=== PATIENT | female | born 1980 | race Caucasian/White ===

== ENCOUNTER → 2020-12-16 | Outpatient (CLI) | payer BC ==
[~2020-12-16] MED LIST: ATENOLOL50 MG PO; DESVENLAFAXINE100 MG PO; DITROPAN XL10 MG PO; ELIQUIS2.5 MG PO; IMITREX100 MG PO; LITHIUM CARBON300 M4 PO; PERCOCET 7.5-31 EACH PO; TOPAMAX50 MG PO; TRAZODONE HCL100 MG PO; VISTARIL25 MG PO; VRAYLAR PO; WELLBUTRIN SR150 M1 PO
[2020-12-16 08:18] LABS: HEMOGLOBIN 13.4 gm/dl (12.3-15.3); RED BLOOD COUNT 4.47 M/UL (4.00-5.10); WHITE BLOOD COUNT 7.9 K/UL (4.5-11.0)
[2020-12-16 08:39] LABS: BUN/CREATININE RATIO 21 (0-10)
== END ==
LOC: LAB 07:34
PROVIDERS: Physician Assistant
DX: E11.9 Type 2 diabetes mellitus without complications (principal); D50.9 Iron deficiency anemia, unspecified; E78.2 Mixed hyperlipidemia; D64.9 Anemia, unspecified; R53.83 Other fatigue
CPT/HCPCS: 36415; 80053; 80061; 82607; 82728; 83036; 83540; 83550; 84439; 84443; 85025

== ENCOUNTER → 2021-04-20 | Outpatient (CLI) | payer BC, OTHER ==
[2021-04-20 08:09] LABS: HEMOGLOBIN 13.8 gm/dl (12.3-15.3); RED BLOOD COUNT 4.9 M/UL (4.00-5.10); WHITE BLOOD COUNT 9.8 K/UL (4.5-11.0)
[2021-04-20 08:27] LABS: BUN/CREATININE RATIO 15 (0-10)
[2021-04-21 11:14] LABS: CREATININE, URINE 193.2 mg/dL (Not Estab.)
== END ==
LOC: LAB 07:13
PROVIDERS: Physician Assistant
DX: E11.9 Type 2 diabetes mellitus without complications (principal); F31.81 Bipolar II disorder; E55.9 Vitamin D deficiency, unspecified; R53.83 Other fatigue; Z79.899 Other long term (current) drug therapy
CPT/HCPCS: 36415; 80053; 80061; 80178; 82043; 82570; 82607; 83036; 84439; 84443; 85025

== ENCOUNTER → 2021-05-19 | Outpatient (CLI) | payer BC, OTHER | LOC: LAB 07:38 | DX: F31.81 Bipolar II disorder (principal); Z79.899 Other long term (current) drug therapy | CPT/HCPCS: 36415; 80178 ==

== ENCOUNTER → 2021-07-03 | Outpatient (CLI) | payer BC, OTHER | LOC: LAB 08:10 | DX: F31.81 Bipolar II disorder (principal); F43.10 Post-traumatic stress disorder, unspecified; R41.1 Anterograde amnesia | CPT/HCPCS: 36415; 80178 ==

== ENCOUNTER → 2021-08-17 | Outpatient (CLI) | payer BC, OTHER ==
[2021-08-17 08:14] LABS: HEMOGLOBIN 12.2 gm/dl (12.3-15.3); RED BLOOD COUNT 4.22 M/UL (4.00-5.10); WHITE BLOOD COUNT 10.5 K/UL (4.5-11.0)
[2021-08-18 10:14] LABS: CREATININE, URINE 132.5 mg/dL (Not Estab.)
== END ==
LOC: LAB 07:12
PROVIDERS: Physician Assistant
DX: F31.81 Bipolar II disorder (principal); F43.10 Post-traumatic stress disorder, unspecified; Z79.899 Other long term (current) drug therapy; E55.9 Vitamin D deficiency, unspecified; R53.83 Other fatigue; E11.9 Type 2 diabetes mellitus without complications; E78.2 Mixed hyperlipidemia
CPT/HCPCS: 36415; 80053; 80061; 80178; 82043; 82570; 82607; 83036; 84439; 84443; 85025

== ENCOUNTER → 2021-11-04 | Outpatient (CLI) | payer BC, OTHER | LOC: LAB 07:20 | DX: Z51.81 Encounter for therapeutic drug level monitoring (principal); F31.81 Bipolar II disorder; Z79.899 Other long term (current) drug therapy | CPT/HCPCS: 36415; 80178 ==

== ENCOUNTER 2022-01-22 14:35 | Emergency (ER) | payer BC, OTHER | END 2022-01-22 16:04 | disposition home or self-care (01) | LOC: ER1 14:35 | DX: S00.01XA Abrasion of scalp, initial encounter (principal); Z23 Encounter for immunization; I10 Essential (primary) hypertension; Z88.0 Allergy status to penicillin; Z88.2 Allergy status to sulfonamides; W19.XXXA Unspecified fall, initial encounter; Y92.481 Parking lot as the place of occurrence of the external cause | CPT/HCPCS: 90471; 90715; 99283 ==

== ENCOUNTER → 2022-02-01 | Outpatient (CLI) | payer BC, OTHER | LOC: KOH-I 10:00 | DX: M50.122 Cervical disc disorder at C5-C6 level with radiculopathy (principal) | CPT/HCPCS: 72040 ==

== ENCOUNTER → 2022-05-14 | Outpatient (CLI) | payer BC, OTHER | LOC: KOH-I 12:25 | DX: M79.642 Pain in left hand (principal); M79.89 Other specified soft tissue disorders | CPT/HCPCS: 73120 ==